=== PATIENT | female | born 1955 | race Caucasian/White ===

== ENCOUNTER 2017-01-13 00:11 | Observation (INO) | payer MEDICARE ==
[2017-01-13 00:31] VITALS: TEMP 97.6
--- NOTE | 2017-01-13 00:48 | C.PDOC ---
History Of Present Illness Pt with history of bipolar disorder presents after taking extra pills.As per son , pt has "done this before" Pt denies suicidal or homicidal ideation. Slow to follwo commands. No f/c/n/v Time Seen by Provider: 01/13/17 00:48 Chief Complaint (Nursing): Medical Clearance History Per: Patient, Family History/Exam Limitations: no limitations Onset/Duration Of Symptoms: Hrs Current Symptoms Are (Timing): Still Present Severity: Moderate Pain Scale Rating Of: 4 Reports Recently: Seen In ED Recent travel outside of the [place]: No Additional History Per: Family Past Medical History Reviewed: Historical Data, Nursing Documentation, Vital Signs Vital Signs: Last Vital Signs Temp 97.6 F 01/13/17 00:22 Pulse 66 01/13/17 02:33 Resp 20 01/13/17 02:33 BP 130/75 01/13/17 02:33 Pulse Ox 95 01/13/17 03:10 - Medical History PMH: Anxiety, Depression, Gastritis Denies: Diabetes, Hepatitis, HIV, HTN, Seizures, Sexually Transmitted Disease - [employer] [facility] Procedures INJECT/INFUSE NEC (01/21/13) Family History: States: No Known Family Hx - Social History Hx Tobacco Use: No Hx Alcohol Use: No Hx Substance Use: No - Immunization History Hx Tetanus Toxoid Vaccination: No Hx Influenza Vaccination: Yes Hx Pneumococcal Vaccination: Yes Review Of Systems Constitutional: Negative for: Fever, Chills Eyes: Negative for: Redness ENT: Negative for: Throat Pain Cardiovascular: Negative for: Chest Pain, Palpitations Respiratory: Negative for: Shortness of Breath Gastrointestinal: Negative for: Nausea, Vomiting, Abdominal Pain Musculoskeletal: Negative for: Back Pain Skin: Negative for: Rash, Lesions Neurological: Negative for: Weakness Psych: Positive for: Depression Physical Exam - Physical Exam Appears: Non-toxic, No Acute Distress Skin: Warm, Dry Head: Normacephalic Eye(s): bilateral: Normal Inspection Oral Mucosa: Moist Neck: Trachea Midline, Supple Chest: Symmetrical Cardiovascular: Rhythm Regular Respiratory: No Rales, No Rhonchi, No Wheezing Gastrointestinal/Abdominal: Soft, No Tenderness, No Distention Back: Normal Inspection Extremity: Normal ROM Extremity: Bilateral: Atraumatic Pulses: Left Dorsalis Pedis: Normal, Right Dorsalis Pedis: Normal Neurological/Psych: Oriented x3, Slow To Respond With Command Gait: Unable To Assess ED Course And Treatment - Laboratory Results Result Diagrams: 01/13/17 01:28 01/13/17 01:22 O2 Sat by Pulse Oximetry: 95 Pulse Ox Interpretation: Normal Progress Note: blood work, crisis evaluation. 6am - pt was cleared for discharge by crisis. sister will pick pt up Reevaluation Time: 06:16 Reassessment Condition: Improved ED OBSERVATION Discharge: Yes Date of observation admission: 01/13/17 Time of observation admission: 03:09 - Observation admission statement Patient is being placed in observation because:: depression - Goals of Observation Goals of observation are:: crisis eval - Progress Note Progress Note: 01/13/17 03:09 vitals stable 01/13/17 06:17 no complaints Disposition Counseled Patient/Family Regarding: Studies Performed, Diagnosis, Need For Followup - Disposition Disposition: HOME/ ROUTINE Disposition Time: 00:48 Condition: FAIR - Clinical Impression Clinical Impression: Anxiety, Medical assessment
[2017-01-13 01:33] LABS: ALBUMIN 3.8 g/dL (3.5-5.0)
[2017-01-13 01:34] LABS: SQUAMOUS EPITHIAL < 1 /hpf (0-5); URINE AMORPHOUS SEDIMENT RARE /ul (<OCC); URINE BILIRUBIN NEGATIVE (NEGATIVE); URINE BLOOD NEGATIVE (NEGATIVE); URINE CLARITY Hazy (Clear); URINE COLOR Yellow (YELLOW); URINE GLUCOSE (UA) NORMAL (Normal); URINE LEUKOCYTE ESTERASE 1+ Leu/uL (Negative); URINE NITRATE NEGATIVE (NEGATIVE); URINE PROTEIN NEGATIVE (NEGATIVE); URINE UROBILINOGEN NORMAL mg/dL (0.2-1.0)
[2017-01-13 01:36] LABS: ALB/GLOB RATIO 1.1 (1.0-2.1); AST/SGOT 23 U/L (14-36); GFR AFRICAN-AMERICAN > 60; GFR NON-AFRICAN AMERICAN 51
[2017-01-13 01:36] LABS: BASO % 0.5 % (0.0-2.0); EOS # 0.2 K/uL (0.0-0.7); EOS % 2.6 % (0.0-4.0); HEMOGLOBIN 12.8 g/dL (11.0-16.0); LYMPH # 3.3 K/uL (1.0-4.3); LYMPH % 43.6 % (20.0-40.0); MEAN CELL VOLUME 92.7 fL (81.0-99.0); MEAN CORPUSCULAR HEMOGLOBIN 30.2 pg (27.0-31.0); MEAN CORPUSCULAR HGB CONC 32.6 g/dL (33.0-37.0); MEAN PLATELET VOLUME 9.2 fL (7.2-11.7); MONO # 0.5 K/uL (0.0-0.8); NEUT # 3.5 K/uL (1.8-7.0); NEUT % 46.3 % (50.0-75.0); RBC 4.23 Mil/uL (3.80-5.20); RED CELL DISTRIBUTION WIDTH 13.7 % (11.5-14.5); WHITE BLOOD COUNT 7.6 K/uL (4.8-10.8)
[2017-01-13 01:37] LABS: ALT/SGPT 33 U/L (9-52); BLOOD UREA NITROGEN 17 mg/dL (7-17); CALCIUM 8.7 mg/dl (8.6-10.4); PHENCYCLIDINE, UR NEGATIVE (NEGATIVE)
[2017-01-13 01:50] LABS: OPIATES, UR NEGATIVE (NEGATIVE)
[2017-01-13 02:05] VITALS: BP 130/75
[2017-01-13 02:24] LABS: BARBITURATES, UR POSITIVE (NEGATIVE); BENZODIAZEPINES, UR POSITIVE (NEGATIVE)
[2017-01-13 02:34] VITALS: PULSE 66; RESP 20
[2017-01-13 07:06] VITALS: O2SAT 99
== END 2017-01-13 06:18 | disposition home or self-care (01) ==
LOC: C.ER 00:11 → C.9OBSV 03:09
PROVIDERS: ADMIT Emergency Medicine; ATTEND Emergency Medicine
DX: F31.9 Bipolar disorder, unspecified (principal); F41.9 Anxiety disorder, unspecified; F19.10 Other psychoactive substance abuse, uncomplicated; F13.10 Sedative, hypnotic or anxiolytic abuse, uncomplicated
CPT/HCPCS: 80053; 80320; 80324; 80345; 80346; 80349; 80353; 80358; 80361; 81001; 82948; 83992; 85025; 99285; G0378

== ENCOUNTER 2017-07-25 15:13 | Emergency (ER) | payer MEDICARE ==
[2017-07-25 15:25] VITALS: BMI 26.5
[2017-07-25] MEDS ORDERED: Sodium Chloride 0.9% 1,000 ML IV ONE (15:31)
[2017-07-25 15:32] VITALS: RESP 18
--- NOTE | 2017-07-25 15:34 | C.PDOC ---
History Of Present Illness 62F biba for apparent overdose. ems says her sister called them. they found her with "open drawer with medications" and pt admitted to them and to Rn taking latuda. however she denies this to me. she is non cooperative with history. Time Seen by Provider: 07/25/17 15:26 Chief Complaint (Nursing): Substance Abuse Past Medical History Vital Signs: Last Vital Signs Temp 98.8 F 07/25/17 19:45 Pulse 70 07/25/17 19:45 Resp 18 07/25/17 19:45 BP 142/87 07/25/17 19:45 Pulse Ox 99 07/25/17 21:44 - Medical History PMH: Anxiety, Bipolar Disorder, Depression, Gastritis, HTN Denies: Diabetes, Hepatitis, HIV, Seizures, Sexually Transmitted Disease - [facility] Procedures INJECT/INFUSE NEC (01/21/13) Family History: States: Unknown Family Hx - Social History Hx Tobacco Use: No Hx Alcohol Use: No Hx Substance Use: No - Immunization History Hx Tetanus Toxoid Vaccination: No Hx Influenza Vaccination: Yes Hx Pneumococcal Vaccination: Yes Review Of Systems Review Of Systems: ROS cannot be obtained secondary to pt's inabilty to answer questions. Physical Exam - Physical Exam Appears: Non-toxic, No Acute Distress Skin: Warm, Dry Head: Atraumatic Eye(s): bilateral: PERRL Nose: No Epistaxis Oral Mucosa: Moist Neck: Supple Cardiovascular: Rhythm Regular Respiratory: No Decreased Breath Sounds, No Accessory Muscle Use, No Rales, No Rhonchi, No Stridor, No Wheezing Gastrointestinal/Abdominal: Soft, No Tenderness Extremity: No Swelling Neurological/Psych: Oriented x3, No Normal Speech (speech is slurred), Other ( no focal deficits) ED Course And Treatment - Laboratory Results Result Diagrams: 07/25/17 16:02 07/25/17 16:02 O2 Sat by Pulse Oximetry: 99 Medical Decision Making Medical Decision Making: poison control contacted EKG Results: Normal Sinus rhythm at 85bpm. Normal axis. Normal intervals. No acute ischemia 2140 disc w psych service. they have cleared her for discharge. she has outpt follow up plan. Disposition - Disposition Disposition: HOME/ ROUTINE Disposition Time: 21:43 Condition: STABLE Additional Instructions: Please follow up on Thursday as scheduled with the psychiatrist. Return to the ER for any worsening symptoms or for any other concerns. Prescriptions: Nitrofurantoin Macrocrystals [Macrobid] 100 mg PO BID #14 cap Forms: [facility] (Luxembourgish), General Discharge Instructions - Clinical Impression Clinical Impression: Bipolar 1 disorder, UTI (urinary tract infection)
[2017-07-25 16:11] LABS: BASO # 0.1 K/uL (0.0-0.2); BASO % 1.6 % (0.0-2.0); EOS # 0.1 K/uL (0.0-0.7); EOS % 1.3 % (0.0-4.0); HEMOGLOBIN 13.8 g/dL (11.0-16.0); LYMPH # 2.3 K/uL (1.0-4.3); LYMPH % 24.4 % (20.0-40.0); MEAN CELL VOLUME 92.1 fL (81.0-99.0); MEAN CORPUSCULAR HEMOGLOBIN 30.8 pg (27.0-31.0); MEAN CORPUSCULAR HGB CONC 33.5 g/dL (33.0-37.0); MEAN PLATELET VOLUME 8.8 fL (7.2-11.7); MONO # 0.5 K/uL (0.0-0.8); MONO % 4.9 % (0.0-10.0); NEUT # 6.5 K/uL (1.8-7.0); NEUT % 67.8 % (50.0-75.0); NRBC % 0.1 % (0.0-2.0); RBC 4.49 Mil/uL (3.80-5.20); RED CELL DISTRIBUTION WIDTH 14.3 % (11.5-14.5); WHITE BLOOD COUNT 9.5 K/uL (4.8-10.8)
[2017-07-25 16:22] LABS: SALICYLATE < 1.0 mg/dL 1
[2017-07-25 16:25] LABS: ALB/GLOB RATIO 1.3 (1.0-2.1); ALBUMIN 4.5 g/dL (3.5-5.0); ALT/SGPT 38 U/L (9-52); AST/SGOT 33 U/L (14-36); BLOOD UREA NITROGEN 13 mg/dL (7-17); CALCIUM 8.9 mg/dl (8.6-10.4); GFR AFRICAN-AMERICAN > 60; GFR NON-AFRICAN AMERICAN 57
[2017-07-25 18:00] LABS: BARBITURATES, UR POSITIVE (NEGATIVE); BENZODIAZEPINES, UR POSITIVE (NEGATIVE); OPIATES, UR NEGATIVE (NEGATIVE); PHENCYCLIDINE, UR NEGATIVE (NEGATIVE)
[2017-07-25 18:03] LABS: URINE BILIRUBIN NEGATIVE (NEGATIVE); URINE BLOOD NEGATIVE (NEGATIVE); URINE CLARITY Clear (Clear); URINE COLOR Yellow (YELLOW); URINE GLUCOSE (UA) NORMAL (Normal); URINE LEUKOCYTE ESTERASE 1+ Leu/uL (Negative); URINE NITRATE POSITIVE (NEGATIVE); URINE PROTEIN NEGATIVE (NEGATIVE); URINE UROBILINOGEN NORMAL mg/dL (0.2-1.0)
[2017-07-25 18:06] LABS: URINE BACTERIA FEW (<OCC)
[2017-07-25 21:02] VITALS: BP 142/87; PULSE 70; TEMP 98.8
[2017-07-25 21:45] VITALS: O2SAT 99
--- NOTE | 2017-07-27 23:33 | CARD ---
APPROVED REPORT EKG Measurement Heart [id number] CO 130P36 [id number] <Conclusion> Normal sinus rhythm Normal ECG
== END 2017-07-25 21:59 | disposition home or self-care (01) ==
LOC: C.ER 15:13
DX: F31.9 Bipolar disorder, unspecified (principal); N39.0 Urinary tract infection, site not specified; I10 Essential (primary) hypertension
CPT/HCPCS: 80053; 81001; 82948; 85025; 87086; 87181; 93005; 96360; 99285; G0480; J7040

== ENCOUNTER 2018-07-09 14:56 | Emergency (ER) | payer MEDICARE ==
[2018-07-09 14:57] VITALS: BMI 26.5
--- NOTE | 2018-07-09 15:29 | C.PDOC ---
History Of Present Illness 63yo female, with history of bipolar disorder, depression, brought to ER by EMS for evaluation due to possible substance abuse. Patient is a poor historian due to her intoxicated state; per patient's son, he states the patient "abuses prescription medication" and he called EMS after he saw the patient fell. Patient at this time denies any homicidal or suicidal ideation and states "I love my life." No medical complaints at this time. PMD: Dr. Rizzo Time Seen by Provider: 07/09/18 15:02 Chief Complaint (Nursing): Substance Abuse History Per: Family History/Exam Limitations: intoxication Past Medical History Reviewed: Historical Data, Nursing Documentation, Vital Signs - Medical History PMH: Anxiety, Bipolar Disorder, Depression, Gastritis, HTN Denies: Diabetes, Hepatitis, HIV, Seizures, Sexually Transmitted Disease - [facility] Procedures INJECT/INFUSE NEC (01/21/13) Family History: States: Unknown Family Hx - Social History Hx Tobacco Use: No Hx Alcohol Use: No Hx Substance Use: No - Immunization History Hx Tetanus Toxoid Vaccination: No Hx Influenza Vaccination: Yes Hx Pneumococcal Vaccination: Yes Review Of Systems Except As Marked, All Systems Reviewed And Found Negative. Cardiovascular: Negative for: Chest Pain Respiratory: Negative for: Shortness of Breath Gastrointestinal: Negative for: Nausea, Vomiting, Abdominal Pain Psych: Negative for: Suicidal ideation, Other (homicidal ideation) Physical Exam - Physical Exam Appears: No Acute Distress Skin: Normal Color Head: Normacephalic Eye(s): bilateral: Normal Inspection, PERRL, EOMI Neck: Supple Chest: Symmetrical Cardiovascular: Rhythm Regular Respiratory: Normal Breath Sounds Gastrointestinal/Abdominal: Normal Exam, Soft Back: Normal Inspection Extremity: Normal ROM, No Deformity Gait: Unsteady ED Course And Treatment - Laboratory Results Result Diagrams: 07/09/18 15:37 07/09/18 16:07 Medical Decision Making Medical Decision Making: Impression: 63yo female, brought to ER for possible overdose Plan: -- Labs -- Urinalysis 1747 Patient possibly fell while going to the bathroom, CT Head ordered. [address] study. 1820 Bloodwork reviewed, no clinically significant abnormalities. Patient seen and evaluated by crisis team, who state patient is stable for discharge home. Patient has a psychiatrist who she follows up with and per crisis team, patient to follow up with them. Patient given prescription for Macrobid due to UTI. Patient is awake, alert and oriented x 3 and with steady gait; still denies SI/HI; patient stable upon discharge home. Disposition - Disposition Disposition: HOME/ ROUTINE Disposition Time: 18:23 Condition: STABLE Additional Instructions: LESTER VALERA, thank you for letting us take care of you today. Your provider was Diane Barney MD and you were treated for SUBSTANCE ABUSE. The emergency medical care you received today was directed at your acute symptoms. If you were prescribed any medication, please fill it and take as directed. It may take several days for your symptoms to resolve. Return to the Emergency Department if your symptoms worsen, do not improve, or if you have any other problems. Please contact your doctor or call one of the physicians/clinics you have been referred to that are listed on the Patient Visit Information form that is included in your discharge packet. Bring any paperwork you were given at dis charge with you along with any medications you are taking to your follow up visit. Our treatment cannot replace ongoing medical care by a primary care provider outside of the emergency department. Thank you for allowing the [facility] team to be part of your care today. If you had an X-Ray or CT scan: A Radiologist will review the ED reading if any change in treatment is needed we will contact you. If you had a blood, urine, or wound culture: It will take several days for the results, if any change in treatment is needed we will contact you. If you had an STI test: It will take 48 hours for the results. Please call after 1 week if you have not heard back. Prescriptions: Nitrofurantoin Macrocrystals [Macrobid] 100 mg PO BID #14 cap Instructions: Urinary Tract Infection, Adult (DC), Prescription Drug Abuse (DC) Forms: [facility] (Tunisian) - Clinical Impression Clinical Impression: UTI (urinary tract infection), Prescription drug abuse - Scribe Statement The provider has reviewed the documentation as recorded by the Jonna Batista Provider Attestation: All medical record entries made by the Jonna were at my direction and personally dictated by me. I have reviewed the chart and agree that the record accurately reflects my personal performance of the history, physical exam, medi jessenia decision making, and the department course for this patient. I have also personally directed, reviewed, and agree with the discharge instructions and disposition.
[2018-07-09 15:42] VITALS: RESP 16
[2018-07-09 15:42] LABS: BASO % 0.3 % (0.0-2.0); EOS # 0.1 K/uL (0.0-0.7); EOS % 0.4 % (0.0-4.0); HEMOGLOBIN 13.6 g/dL (11.0-16.0); LYMPH % 15.9 % (20.0-40.0); MEAN CELL VOLUME 94.2 fL (81.0-99.0); MEAN CORPUSCULAR HEMOGLOBIN 31.6 pg (27.0-31.0); MEAN CORPUSCULAR HGB CONC 33.6 g/dL (33.0-37.0); MEAN PLATELET VOLUME 8.6 fL (7.2-11.7); MONO # 0.9 K/uL (0.0-0.8); NEUT # 9.8 K/uL (1.8-7.0); NEUT % 76.4 % (50.0-75.0); RBC 4.29 Mil/uL (3.80-5.20); RED CELL DISTRIBUTION WIDTH 13.9 % (11.5-14.5); WHITE BLOOD COUNT 12.8 K/uL (4.8-10.8)
[2018-07-09 16:23] LABS: ALB/GLOB RATIO 1.6 (1.0-2.1); ALBUMIN 4.5 g/dL (3.5-5.0); ALT/SGPT 20 U/L (9-52); AST/SGOT 26 U/L (14-36); BLOOD UREA NITROGEN 14 mg/dL (7-17); CALCIUM 9.4 mg/dl (8.6-10.4); GFR NON-AFRICAN AMERICAN > 60
[2018-07-09 16:34] LABS: OPIATES, UR NEGATIVE (NEGATIVE); PHENCYCLIDINE, UR NEGATIVE (NEGATIVE)
[2018-07-09 16:39] LABS: BARBITURATES, UR POSITIVE (NEGATIVE); BENZODIAZEPINES, UR POSITIVE (NEGATIVE)
[2018-07-09 17:37] LABS: SQUAMOUS EPITHIAL < 1 /hpf (0-5); URINE BACTERIA FEW (<OCC); URINE BILIRUBIN NEGATIVE (NEGATIVE); URINE BLOOD NEGATIVE (NEGATIVE); URINE COLOR Yellow (YELLOW); URINE GLUCOSE (UA) NORMAL (Normal); URINE LEUKOCYTE ESTERASE 3+ Leu/uL (Negative); URINE PROTEIN NEGATIVE (NEGATIVE); URINE UROBILINOGEN NORMAL mg/dL (0.2-1.0)
[2018-07-09 17:48] LABS: URINE CLARITY Hazy (Clear)
[2018-07-09 18:14] VITALS: BP 138/80; PULSE 86; TEMP 97.8; O2SAT 97
--- NOTE | 2018-07-12 13:03 | CARD ---
APPROVED REPORT Date of service: 07/09/2018 EKG Measurement Heart [id number] [place] 130P49 [id number] <Conclusion> Normal sinus rhythm Normal ECG
== END 2018-07-09 18:32 | disposition home or self-care (01) ==
LOC: C.ER 14:56
DX: N39.0 Urinary tract infection, site not specified (principal); F19.10 Other psychoactive substance abuse, uncomplicated; I10 Essential (primary) hypertension
CPT/HCPCS: 80053; 81001; 82948; 83735; 84100; 85025; 93005; 99285; G0480